=== PATIENT | female | born 1970 | race Caucasian/White ===

== ENCOUNTER 2019-09-25 18:29 | Emergency (ER) | payer SELFPAY | END 2019-09-25 21:26 | disposition home or self-care (01) | LOC: ERS 18:29 | DX: S16.1XXA Strain of muscle, fascia and tendon at neck level, initial encounter (principal); S00.93XA Contusion of unspecified part of head, initial encounter; I10 Essential (primary) hypertension; J44.9 Chronic obstructive pulmonary disease, unspecified; Z87.891 Personal history of nicotine dependence; Z79.899 Other long term (current) drug therapy; W20.8XXA Other cause of strike by thrown, projected or falling object, initial encounter | CPT/HCPCS: 99283 ==